=== PATIENT | male | born 1985 | race Caucasian/White ===

== ENCOUNTER 2020-07-20 11:21 | Emergency (ER) | payer OTHER ==
[~2020-07-20] VITALS: Ht 180.3 cm; Wt 99.8 kg
[2020-07-20 12:16] LABS: ABSOLUTE NEUTROPHILS 7.7 thou/uL (1.4-8.2); BASOPHILS 0.9 % (0.0-2.0); EOSINOPHILS 0.6 % (0.0-3.0); HEMATOCRIT 46.7 % (42.0-52.0); HEMOGLOBIN 15.7 gm/dL (14.0-18.0); LYMPHOCYTES 17.5 % (24.0-44.0); MCH 31.4 pg (26.0-34.0); MCHC 33.6 g/dL (28.0-37.0); MCV 93.3 fL (80.0-100.0); MONOCYTES 7.8 % (1.0-8.0); PLATELET COUNT 225 thou/uL (150-400); POLYS 73.2 % (36.0-66.0); RBC 5.01 mil/uL (4.50-6.00); RDW 12.5 % (10.5-14.5); WBC 10.5 thou/uL (4.0-11.0)
[2020-07-20 12:22] LABS: ANION GAP 6 mmol/L (7-16); BUN 16 mg/dL (7-18); CALCIUM 9.3 mg/dL (8.5-10.1); CHLORIDE 107 mmol/L (98-107); CO2 29 mmol/L (21-32); CREATININE 1.2 mg/dL (0.7-1.3); GLUCOSE 131 mg/dL (74-106); POTASSIUM 4.3 mmol/L (3.5-5.1); SODIUM 142 mmol/L (136-145)
[2020-07-20 12:28] LABS: ALBUMIN 3.9 g/dL (3.4-5.0); SALICYLATE 2.9 mg/dL (2.8-20.0); SGOT 31 U/L (15-37); SGPT 59 U/L (16-63); TOTAL BILIRUBIN 0.3 mg/dL (0.2-1.0); TOTAL PROTEIN 7.3 g/dL (6.4-8.2)
[2020-07-20 12:57] LABS: URINE BILIRUBIN NEGATIVE (Negative); URINE BLOOD TRACE (Negative); URINE CLARITY CLEAR; URINE COLOR YELLOW; URINE GLUCOSE-RANDOM* NEGATIVE (Negative); URINE KETONES TRACE (Negative); URINE LEUKOCYTES-REFLEX NEGATIVE (Negative); URINE NITRITE-REFLEX NEGATIVE (Negative); URINE PROTEIN (DIPSTICK) NEGATIVE (Negative); URINE SPECIFIC GRAVITY >= 1.030 (1.005-1.035); URINE UROBILINOGEN 0.2 E.U./dl (0.2-1.0)
[2020-07-20 13:04] LABS: AMP/METHAMP Negative (Negative); BARBITURATES Negative (Negative); BENZODIAZEPINES Negative (Negative); COCAINE Negative (Negative); METHADONE Negative (Negative); OPIATES Negative (Negative); PCP Negative (Negative)
[2020-07-20] MEDS ORDERED: SEROQUEL 50 MG50 MG PO (13:22)
[2020-07-20] MEDS ORDERED: VENLAFAXINE HCL75 M1 PO (13:22)
[2020-07-20] MEDS ORDERED: TOPAMAX50 MG PO (13:22)
[2020-07-20] MEDS ORDERED: GEODON 80 MG CA80 MG PO (13:22)
[2020-07-20] MEDS ORDERED: BUPROPION XL300 MG PO (13:22)
[2020-07-20] MEDS ORDERED: LAMICTAL150 MG PO (13:22)
[2020-07-20] MEDS ORDERED: TOPAMAX 25 MG T25 MG PO (13:22)
[2020-07-20 13:48] VITALS: BP 143/88
== END 2020-07-20 13:51 | disposition home or self-care (01) ==
LOC: ER 11:21
PROVIDERS: Emergency Medicine
DX: F45.9 Somatoform disorder, unspecified (principal); R35.0 Frequency of micturition; R39.11 Hesitancy of micturition

== ENCOUNTER 2020-09-11 17:28 | Emergency (ER) | payer OTHER ==
[~2020-09-11] VITALS: Ht 180.3 cm; Wt 136.1 kg
[~2020-09-11 17:28] MED LIST: BUPROPION XL300 MG PO; GEODON 80 MG CA80 MG PO; LAMICTAL150 MG PO; SEROQUEL 50 MG50 MG PO; TOPAMAX 25 MG T25 MG PO; TOPAMAX50 MG PO; VENLAFAXINE HCL75 M1 PO
[2020-09-11 18:33] LABS: URINE BILIRUBIN NEGATIVE (Negative); URINE BLOOD NEGATIVE (Negative); URINE CLARITY CLEAR; URINE COLOR YELLOW; URINE GLUCOSE-RANDOM* NEGATIVE (Negative); URINE KETONES NEGATIVE (Negative); URINE LEUKOCYTES-REFLEX NEGATIVE (Negative); URINE NITRITE-REFLEX NEGATIVE (Negative); URINE PROTEIN (DIPSTICK) NEGATIVE (Negative); URINE SPECIFIC GRAVITY >= 1.030 (1.005-1.035); URINE UROBILINOGEN 0.2 E.U./dl (0.2-1.0)
[2020-09-11] MEDS ORDERED: FLOMAX0.4 MG PO (18:44)
[2020-09-11 19:22] VITALS: BP 142/87
== END 2020-09-11 19:32 | disposition home or self-care (01) ==
LOC: ER 17:28
PROVIDERS: Nurse Practitioner
DX: R33.8 Other retention of urine (principal); F41.9 Anxiety disorder, unspecified; F32.9 Major depressive disorder, single episode, unspecified; F17.210 Nicotine dependence, cigarettes, uncomplicated; Z79.1 Long term (current) use of non-steroidal anti-inflammatories (NSAID); Z79.899 Other long term (current) drug therapy

== ENCOUNTER 2020-09-16 21:49 | Emergency (ER) | payer OTHER ==
[~2020-09-16] VITALS: Ht 180.3 cm; Wt 136.1 kg
[~2020-09-16 21:49] MED LIST changes: +FLOMAX0.4 MG PO
[2020-09-16 21:53] VITALS: BP 142/100
== END 2020-09-16 22:09 | disposition home or self-care (01) ==
LOC: ER 21:49
DX: N48.89 Other specified disorders of penis (principal); R33.9 Retention of urine, unspecified; F17.210 Nicotine dependence, cigarettes, uncomplicated

== ENCOUNTER → 2021-04-16 | Emergency (ER) | payer OTHER ==
[~2021-04-16] VITALS: Ht 180.3 cm; Wt 81.7 kg
[2021-04-16 18:47] VITALS: BP 117/82
[2021-04-16 20:22] LABS: HEMATOCRIT 48.2 % (42.0-52.0); HEMOGLOBIN 16.4 gm/dL (14.0-18.0); MCH 31.1 pg (26.0-34.0); MCHC 33.9 g/dL (28.0-37.0); MCV 91.6 fL (80.0-100.0); RBC 5.26 mil/uL (4.50-6.00); RDW 12.9 % (10.5-14.5); WBC 11.9 thou/uL (4.0-11.0)
[2021-04-16 20:33] LABS: CALCIUM 9.2 mg/dL (8.5-10.1); CREATININE 0.9 mg/dL (0.7-1.3); POTASSIUM 3.5 mmol/L (3.5-5.1)
== END ==
LOC: ER 18:47
PROVIDERS: Physician Assistant
DX: R51.9 Headache, unspecified (principal); F17.210 Nicotine dependence, cigarettes, uncomplicated